=== PATIENT | male | born 1975 | race Hispanic/Latino ===

== ENCOUNTER 2018-03-30 15:47 | Outpatient (CLI) | payer OTHER ==
--- NOTE | 2018-03-31 10:52 | RAD ---
LUMBAR SPINE 2 VIEWS: HISTORY: Low back pain, sciatica. FINDINGS: No fracture, subluxation, or bony destruction is seen. Mild degenerative change is seen in the lower lumbar spine. POS: [facility]
== END 2018-03-30 15:48 | disposition home or self-care (01) ==
LOC: BICRAD 15:47
PROVIDERS: ATTEND Physician Assistant
DX: M54.40 Lumbago with sciatica, unspecified side (principal); M47.816 Spondylosis without myelopathy or radiculopathy, lumbar region
CPT/HCPCS: 72100